=== PATIENT | female | born 1995 | race Caucasian/White ===

== ENCOUNTER 2017-06-04 18:12 | Inpatient (IN) | payer OTHER ==
[~2017-06-04] VITALS: Ht 162.6 cm; Wt 66.5 kg
[~2017-06-04 18:12] MED LIST: FLUO0.25 PO; PREN1TAB27 PO
[2017-06-04 19:15] VITALS: BP 100/66
[2017-06-04 19:57] VITALS: BP 100/66
[2017-06-04] MEDS ORDERED: D5%-LACTATED RINGERS 1,000 ML IV SCH ×2 (20:00→21:00)
[2017-06-04] MEDS ORDERED: METOCLOPRAMIDE 5 MG/ML, 2ML IVPush PRN (22:00)
[2017-06-04] MEDS: METOCLOPRAMIDE 10MG TABLET PO SCH (23:00)
[2017-06-04] MEDS ORDERED: ACETAMINOPHEN 325 MG TABLET PO PRN (23:00)
[2017-06-04] MEDS ORDERED: CALCIUM CARBONATE 500 MG TAB.CHEW PO PRN (23:00)
[2017-06-04] MEDS ORDERED: POTASSIUM CHLORIDE 20 MEQ, MAGNESIUM SULFATE 1 GM, THIAMINE 100 MG, MVI ADULT 10 ML in ... IV SCH (23:00)
[2017-06-04] MEDS ORDERED: PROMETHAZINE 25MG TABLET PO PRN (23:00)
[2017-06-04] MEDS: DOXYLAMINE 25MG TABLET PO SCH (23:27)
[2017-06-04] MEDS: PYRIDOXINE 50MG TABLET PO SCH (23:27)
[2017-06-04] MEDS: METOCLOPRAMIDE 5 MG/ML, 2ML IVPush SCH (23:28)
[2017-06-04] MEDS: FAMOTIDINE 20 MG/2 ML IVPush SCH (23:28)
[2017-06-05 00:08] VITALS: BP 93/61
[2017-06-05 00:11] LABS: HEMATOCRIT 36.5 % (34.6-47.8); HEMOGLOBIN 12.6 g/dL (11.7-16.4)
[2017-06-05 00:22] LABS: ASPARTATE AMINO TRANSFERASE 10 U/L (15-37); BLOOD UREA NITROGEN 10 mg/dL (7-18)
[2017-06-05] MEDS: METOCLOPRAMIDE 5 MG/ML, 2ML IVPush SCH ×3 (04:55→17:00)
[2017-06-05] MEDS: METOCLOPRAMIDE 10MG TABLET PO SCH ×3 (04:55→17:51)
[2017-06-05 07:04] VITALS: BP 175/75
[2017-06-05 07:06] VITALS: BP 83/53
[2017-06-05] MEDS: DOXYLAMINE 25MG TABLET PO SCH (09:29)
[2017-06-05] MEDS: FAMOTIDINE 20 MG/2 ML IVPush SCH (09:29)
[2017-06-05] MEDS: PYRIDOXINE 50MG TABLET PO SCH (09:29)
[2017-06-05] MEDS: POTASSIUM CHLORIDE 20 MEQ in SODIUM CHLORIDE 0.9% 1,000 ML IV SCH ×2 (09:30→17:05)
[2017-06-05 11:20] VITALS: BP 99/64
[2017-06-05 12:36] VITALS: BP 104/57
[2017-06-05 18:33] VITALS: BP 101/68
[2017-06-05] MEDS ORDERED: METO10TA82 PO (19:16)
[2017-06-05] MEDS ORDERED: D5%-LACTATED RINGERS 1,000 ML IV SCH (21:00)
== END 2017-06-05 19:35 | disposition home or self-care (01) | DRG 781 ==
LOC: 4NOR 19:05
PROVIDERS: ADMIT Obstetrics & Gynecology; ATTEND Obstetrics & Gynecology
DX: O21.0 Mild hyperemesis gravidarum (principal); B96.89 Other specified bacterial agents as the cause of diseases classified elsewhere; Z3A.14 14 weeks gestation of pregnancy; Z88.8 Allergy status to other drugs, medicaments and biological substances
CPT/HCPCS: 36415; 80053; 81001; 84443; 85025; 87086; J3411; J3475; J3480; J2765; J7030; J7121; S0028